=== PATIENT | female | born 1945 | race Caucasian/White ===

== ENCOUNTER 2018-09-08 17:46 | Emergency (ER) | payer MEDICARE, MEDICAID ==
[2018-09-08 17:58] VITALS: TEMP 99; O2SAT 98
--- NOTE | 2018-09-08 18:25 | ED PDOC ---
Arrival/HPI - General Chief Complaint: Back Pain Time Seen by Provider: 09/08/18 18:15 Historian: Patient, Family - History of Present Illness Narrative History of Present Illness (Text): 72 y/o female with PMH HTN presents to the ED c/o left sided thoracic back pain x 1 day. Pt states she bent down to tie her shoes yesterday and believes she may have pulled a muscle. States the pain is sharp and occasionally radiates to the left chest, worse when she takes deep breaths. Took advil for pain yesterday without relief. Denies fever, chills, cough, abdominal pain, N/V, headache, vision changes, dizziness, numbness, paresthesias, weakness. Past Medical History - Provider Review Nursing Documentation Reviewed: Yes - Infectious Disease Hx of Infectious Diseases: None - Tetanus Immunization Tetanus Immunization: Never Received Tetanus Vaccine - Cardiac Hx Hypertension: Yes - Psychiatric Hx Depression: No Hx Emotional Abuse: No Hx Physical Abuse: No Hx Substance Use: No - Surgical History Other/Comment: abdominal sx - Anesthesia Hx Anesthesia: Yes Hx Anesthesia Reactions: No Hx Malignant Hyperthermia: No - Suicidal Assessment Feels Threatened In Home Enviroment: No Family/Social History - Physician Review Nursing Documentation Reviewed: Yes Family/Social History: No Known Family HX Smoking Status: Never Smoked Hx Alcohol Use: No Hx Substance Use: No Hx Substance Use Treatment: No Allergies/Home Meds Allergies/Adverse Reactions: Allergies No Known Allergies Allergy (Verified 09/08/18 17:58) Home Medications: Home Meds Medication Instructions Recorded Confirmed Enalapril Maleate [Enalapril] 5 mg PO DAILY 12/14/12 09/08/18 Losartan Potassium 100 mg PO DAILY 12/14/12 12/14/12 Nifedipine [Nifedipine ER] 90 mg PO DAILY 12/14/12 09/08/18 Review of Systems - Physician Review All systems were reviewed & negative as marked: Yes - Review of Systems Constitutional: Normal. absent: Fatigue Eyes: Normal. absent: Vision Changes ENT: Normal. absent: Sore Throat, Sinus Congestion Respiratory: Normal. absent: SOB, Cough Cardiovascular: Chest Pain. absent: Palpitations, Syncope Gastrointestinal: Normal. absent: Abdominal Pain, Nausea, Vomiting Genitourinary Female: Normal. absent: Dysuria, Frequency Musculoskeletal: Back Pain. absent: Neck Pain Skin: Normal. absent: Rash Neurological: Normal. absent: Headache, Dizziness Endocrine: Normal Hemo/Lymphatic: Normal Psychiatric: Normal Physical Exam Vital Signs Reviewed: Yes Vital Signs Temp Pulse Resp BP Pulse Ox 09/08/18 17:53 99 F 89 19 165/75 H 98 Temperature: Afebrile Blood Pressure: Hypertensive Pulse: Regular Respiratory Rate: Normal Appearance: Positive for: Well-Appearing, Non-Toxic, Comfortable Pain Distress: None Mental Status: Positive for: Alert and Oriented X 3 - Systems Exam Head: Present: Atraumatic, Normocephalic Pupils: Present: PERRL Extroacular Muscles: Present: EOMI Conjunctiva: Present: Normal Mouth: Present: Moist Mucous Membranes Neck: Present: Normal Range of Motion Respiratory/Chest: Present: Clear to Auscultation, Good Air Exchange, Tender to Palpation (point tender to left posterior ribs). No: Respiratory Distress, Acce ssory Muscle Use Cardiovascular: Present: Regular Rate and Rhythm, Normal S1, S2. No: Murmurs Abdomen: Present: Normal Bowel Sounds. No: Tenderness, Distention, Peritoneal Signs Back: Present: Normal Inspection, Paraspinal Tenderness (let sided thoracic). No: CVA Tenderness, Midline Tenderness Upper Extremity: Present: Normal Inspection, Normal ROM, NORMAL PULSES, Capillary Refill < 2s. No: Cyanosis, Edema, Tenderness, Swelling Lower Extremity: Present: Normal Inspection, NORMAL PULSES, Normal ROM, Capillary Refill < 2 s. No: Edema Neurological: Present: GCS=15, CN II-XII Intact, Speech Normal, Motor Func Grossly Intact, Normal Sensory Function, Gait Normal Skin: Present: Warm, Dry, Normal Color. No: Rashes Lymphatic: No: Cervical Adenopathy Psychiatric: Present: Alert, Oriented x 3, Normal Insight, Normal Concentration, Normal Affect, Normal Mood Medical Decision Making ED Course and Treatment: 09/08/18 18:25 Initial Plan: * CBC, CMP * Troponin * Coags * CTA * EKG * Lidoderm patch * Tylenol * ASA Mild hypokalemia, will replace with 40mEq KCl Labs otherwise unremarkable. EKG with T wave inversions in inferior and lateral leads. Troponin negative. CTA negative for PE or aortic dissection. Shows left sided lung mass, recommended interval followup. 23:[address] Sargent, who accepts patient for inpatient observation with diagnosis of chest pain, r/o ACS. Before orders for admission could be placed, upon evaluation, patient informed medical field representative that she would like to leave against medical advice. See progress note. Risks explained by, and AMA form signed by resident Florinda Naylor. Patient will leave AMA. Instructed to followup with primary doctor for lung mass and return if she wishes to be re-evaluated or experiences new/worsening symptoms. - Lab Interpretations Lab Results: 09/08/18 20:06 09/08/18 20:06 Lab Results 09/08/18 20:06: Sodium 139, Potassium 3.3 L, Chloride 107, Carbon Dioxide 24, Anion Gap 11, BUN 19, Creatinine 1.0, Est GFR ( Amer) > 60, Est GFR (Non- Af Amer) 54, Random Glucose 172 H, Calcium 9.1, Phosphorus 3.3, Magnesium 1.9, Total Bilirubin 0.2, AST 30, ALT 62 H, Alkaline Phosphatase 105, Troponin I < 0.01, Total Protein 7.8, Albumin 3.9, Globulin 3.9, Albumin/Globulin Ratio 1.0 L 09/08/18 20:06: PT 10.9, INR 0.96, APTT 28.8 09/08/18 20:06: WBC 11.0, RBC 4.07, Hgb 11.5 L, Hct 35.0 L, MCV 86.0, MCH 28.3, MCHC 32.9, RDW 14.5, Plt Count 372, MPV 10.9, Gran % 59.0, Lymph % (Auto) 29.7, [place] % (Auto) 7.1 H, Eos % (Auto) 3.5, Baso % (Auto) 0.7, Gran # 6.50, Lymph # (Auto) 3.3, [place] # (Auto) 0.8 H, Eos # (Auto) 0.4, Baso # (Auto) 0.08 09/08/18 19:08: Urine Color Light yellow, Urine Appearance Clear, Urine pH 6.5, Ur Specific [place] 1.020, Urine Protein 100 H, Urine Glucose (UA) Negative, Urine Ketones Negative, Urine Blood Trace-intact H, Urine Nitrate Negative, Urine Bilirubin Negative, Urine Urobilinogen 0.2, Ur Leukocyte Esterase Negative, Urine RBC 0 - 2, Urine WBC 2 - 5, Ur Epithelial Cells 0 - 2, Urine Bacteria Small, Urine Other Uren I have reviewed the lab results: Yes - RAD Interpretation Client Leader: Radiologist - EKG Interpretation EKG Interpretation (Text): Rate 66; NSR; Normal Intervals; No STEMI, inverted T waves in inferior and lateral leads Interpreted by ED Physician: Yes Type: 12 lead EKG Comparison: No previous EKG avail. Disposition/Present on Arrival - Present on Arrival Any Indicators Present on Arrival: No History of DVT/PE: No History of Uncontrolled Diabetes: No Urinary Catheter: No History of Decub. Ulcer: No History Surgical Site Infection Following: None - Disposition Have Diagnosis and Disposition been Completed?: Yes Diagnosis: Left against medical advice, Chest pain Disposition: AGAINST MEDICAL ADVICE Disposition Time: 01:00 Condition: STABLE Discharge Instructions (ExitCare): Chest Pain (ED) Referrals: Meera Adams MD [Primary Care Provider] - Follow up with primary Forms: [employer] ([place])
[2018-09-08] MEDS ORDERED: Lidocaine 5% Patch TD STA (18:29)
[2018-09-08 19:27] LABS: PH,URINE 6.5 (4.7-8.0); URINE BILIRUBIN NEGATIVE (NEGATIVE); URINE BLOOD TRACE-INTACT (NEGATIVE); URINE GLUCOSE (UA) NEGATIVE (NEGATIVE); URINE LEUKOCYTE ESTERASE NEGATIVE Leu/uL (NEGATIVE); URINE PROTEIN 100 mg/dL (<30 mg/dL); URINE UROBILINOGEN 0.2 E.U./dL (<1 E.U./dL)
[2018-09-08 19:37] LABS: URINE APPEARANCE CLEAR (CLEAR); URINE COLOR LIGHT YELLOW (YELLOW)
[2018-09-08 19:52] LABS: URINE BACTERIA SMALL (NEG); URINE EPITHELIAL CELLS 0 - 2 /hpf (0-5); URINE RBC 0 - 2 /hpf (0-2)
[2018-09-08 20:10] LABS: BASO # 0.08 K/mm3 (0.0-2.0); BASO % 0.7 % (0.0-3.0); EOS # 0.4 (0.0-0.7); EOS % 3.5 % (1.5-5.0); GRAN # 6.5 (1.4-6.5); HEMOGLOBIN 11.5 g/dL (12.0-16.0); LYMPH # 3.3 (1.2-3.4); LYMPH % 29.7 % (22.0-35.0); MEAN CORPUSCULAR HEMOGLOBIN 28.3 pg (25.0-35.0); MEAN CORPUSCULAR HGB CONC 32.9 g/dl (31.0-37.0); MEAN PLATELET VOLUME 10.9 fl (7.0-11.0); MONO # 0.8 (0.1-0.6); MONO % 7.1 % (1.0-6.0); RBC 4.07 10^6/uL (3.5-6.1); RED CELL DISTRIBUTION WIDTH 14.5 % (11.5-14.5)
[2018-09-08 20:16] LABS: ALBUMIN 3.9 g/dL (3.0-4.8); ALT/SGPT 62 U/L (7-56); AST/SGOT 30 U/L (14-36); BLOOD UREA NITROGEN 19 mg/dL (7-21); CALCIUM 9.1 mg/dL (8.4-10.5); GFR NON-AFRICAN AMERICAN 54
[2018-09-08] MEDS ORDERED: Potassium Chloride 20 mEq ER Tab PO STA (20:20)
[2018-09-08] MEDS ORDERED: Iohexol 350 MG/100 ML VIAL ONE (20:21)
[2018-09-08 20:27] LABS: TROPONIN I < 0.01 ng/mL
[2018-09-08 20:32] LABS: INR 0.96; PARTIAL THROMBOPLASTIN TIME 28.8 Seconds (25.1-36.5); PROTHROMBIN TIME 10.9 SECONDS (9.4-12.5)
--- NOTE | 2018-09-09 00:54 | CP.PCM.PN ---
<Florinda Naylor - Last Filed: 09/09/18 00:51> Subjective - Date & Time of Evaluation Date of Evaluation: 09/09/18 Time of Evaluation: 00:51 - Subjective Subjective: Patient signed out AMA. Patient requested to sign out AMA upon arrival and stated pain had resolved and did not want admission into hospital. Risks explained to patient including worsening of known/unknown symptoms, permanent disability and . Patient acknowledged understanding of risks and agreed to to sign out AMA. Patient advised to return to ED if worsening of symptoms. Patient advised to get repeat in chest imaging in 2 months for follow up left upper lobe mass in anterior segment of lung and patient acknowledged understanding. Objective - Vital Signs/Intake and Output Vital Signs (last 24 hours): Temp Pulse Resp BP Pulse Ox 99 F 89 19 165/75 H 98 09/08/18 17:53 09/08/18 17:53 09/08/18 17:53 09/08/18 17:53 09/08/18 17:53 - Labs Labs: 09/08/18 20:06 09/08/18 20:06 PT 10.9 SECONDS (9.4-12.5) 09/08/18 20:06 INR 0.96 09/08/18 20:06 APTT 28.8 Seconds (25.1-36.5) 09/08/18 20:06 <Rodolfo Sargent - Last Filed: 09/09/18 01:55> Objective - Vital Signs/Intake and Output Vital Signs (last 24 hours): Temp Pulse Resp BP Pulse Ox 99 F 70 18 122/80 98 09/08/18 17:53 09/09/18 01:31 09/09/18 01:31 09/09/18 01:31 09/09/18 01:32 - Labs Labs: 09/08/18 20:06 09/08/18 20:06 PT 10.9 SECONDS (9.4-12.5) 09/08/18 20:06 INR 0.96 09/08/18 20:06 APTT 28.8 Seconds (25.1-36.5) 09/08/18 20:06 Attending/Attestation - Attestation I have personally seen and examined this patient.: No I have fully participated in the care of the patient.: Yes I have reviewed all pertinent clinical information, including history, physical exam and plan: Yes
[2018-09-09 01:32] VITALS: BP 122/80; PULSE 70; RESP 18
--- NOTE | 2018-09-09 09:04 | RAD ---
HISTORY: back/chest pain COMPARISON: None available. TECHNIQUE: Chest, one view. FINDINGS: LUNGS: 2.6 x 1.6 cm ovoid left upper lobe opacity. Please note that chest x-ray has limited sensitivity for the detection of pulmonary masses. PLEURA: No significant pleural effusion identified. No definite pneumothorax . CARDIOVASCULAR: Cardiomegaly. Atherosclerotic calcification present. OSSEOUS STRUCTURES: Degenerative changes of the spine. Acromioclavicular arthropathy. VISUALIZED UPPER ABDOMEN: Unremarkable. OTHER FINDINGS: None. IMPRESSION: Cardiomegaly. 2.6 x 1.6 cm left upper lobe opacity. Recommend correlation with CTA chest which followed.
--- NOTE | 2018-09-09 11:40 | CT ---
Date of service: 09/08/2018 CTA chest PE protocol Indication: pleuritic chest pain Technique: Contiguous axial images were obtained through the chest with intravenous contrast enhancement. Sagittal and coronal reconstructions were generated and reviewed. This CT exam was performed using 1 or more of the following dose reduction techniques: Automated exposure control, adjustment of the MAA and/or kV according to patient size, and/or use of iterative reconstruction technique. IV contrast: 100 cc Omnipaque 350 Radiation dose (DLP): 338.35 MGy-cm. Comparison: Chest x-ray performed 09/08/18 Findings: Visualized portions of the inferior thyroid gland appear unremarkable. The mediastinal and hilar vascular structures appear within normal limits. Mild cardiomegaly. Trace pericardial fluid. No large central or segmental pulmonary embolus evident. 14 x 32 mm focal ground-glass ovoid opacity in the anterior segment left upper lobe. No pleural effusion. No pneumothorax. Small hiatal hernia/distal esophageal wall thickening. Limited visualized portions of the upper abdomen: Bilateral adrenal gland hypertrophy. Too small to characterize hepatic hypodensities. 13 mm probable splenule. No acute osseous abnormality is detected. Impression: 14 x 32 mm ground-glass focal ovoid opacity in the anterior segment left upper lobe. Recommend clinical correlation and short interval follow-up. No large central or segmental pulmonary embolus identified. Mild cardiomegaly. Trace pericardial fluid. Small hiatal hernia/distal esophageal wall thickening. Limited visualized portions of the upper abdomen: Bilateral adrenal gland hypertrophy. Too small to characterize hepatic hypodensities. 13 mm probable splenule. Preliminary impression was provided by [facility].
--- NOTE | 2018-09-09 14:50 | CARD ---
APPROVED REPORT Date of service: 09/08/2018 EKG Measurement Heart [id number] <Conclusion> Sinus rhythm with premature atrial complexes T wave abnormality, consider inferolateral ischemia Abnormal ECG
== END 2018-09-09 01:32 | disposition left against medical advice (07) ==
LOC: ED 17:46
DX: R07.9 Chest pain, unspecified (principal); I10 Essential (primary) hypertension
CPT/HCPCS: 71045; 71275; 80053; 81001; 83735; 84100; 84484; 85025; 85610; 85730; 87086; 93005; 96374; 99283; J1885; Q9967